=== PATIENT | female | born 1985 | race Caucasian/White ===

== ENCOUNTER 2023-11-21 19:30 | Emergency (ER) | payer OTHER ==
--- NOTE | 2023-11-21 19:57 | ED Physician Documentation ---
PD HPI BACK PAIN - Stated complaint Stated Complaint: BACK SPASMS - Chief complaint Chief Complaint: Back Pain - History obtained from History obtained from: Patient - Additional information Additional information: She was running across the street today and developed sudden severe low back pain. It spasmodic in nature, worse with position changes and bending. It is in the right low back and radiates a bit into the right leg. No numbness or tingling, no saddle anesthesia, no fevers, no IVDU, no possibility of . She tried Tylenol and ibuprofen without relief. PD PAST MEDICAL HISTORY - Past Medical History Past Medical History: No - Past Surgical History Past Surgical History: Yes /SNUFF DRIER: section HEENT: Tonsil/Adenoidectomy - Present Medications Home Medications: Ambulatory Orders Medication Instructions Recorded Confirmed Cholecalciferol (Vitamin D3) 1 cap PO DAILY 11/21/23 11/21/23 [Vitamin D3] Cyanocobalamin (Vitamin B-12) 1 tab PO DAILY 11/21/23 11/21/23 [Vitamin B12] Cyclobenzaprine [Flexeril] 10 mg PO TID PRN #14 tablet 11/21/23 HYDROcod/ACETAM 5/325 [[place] 5/325] 1 - 2 tab PO Q6H PRN #14 tablet 11/21/23 Magnesium 1 tab PO DAILY 11/21/23 11/21/23 Psyllium Husk [Fiber] 1 cap PO DAILY 11/21/23 11/21/23 - Allergies Allergies/Adverse Reactions: Allergies Allergy/AdvReac Type Severity Reaction Status Date / Time oxycodone AdvReac Itching Verified 11/21/23 19:39 - Social History Does the pt smoke?: No Smoking Status: Never smoker Does the pt drink ETOH?: No Does the pt have substance abuse?: No Substance Use and Type: Marijuana PD ED PE NORMAL - Vitals Vital signs reviewed: Yes - General General: Alert and oriented X 3, Other (Generally comfortable and pursue preferring to stand, occasionally she will move a little bit and then clutch her back.) - Back Back: No spinal TTP, Other (Tender to the right paralumbar musculature and above the sciatic notch) - Extremities Extremities: Other (The patient has equal and normal Achilles and patellar reflexes bilaterally. Normal sensation in all areas of the legs. Patient denies saddle anesthesia. Normal strength in flexion-extension at the ankles, knees, and flexion of the hips.) - Neuro Neuro: Alert and oriented X 3, Normal speech - Psych Psych: Normal mood, Normal affect Results - Vitals Vitals: Vital Signs - 24 hr 11/21/23 19:33 Temperature 36.7 C Heart Rate 64 Respiratory 15 Rate Blood Pressure 117/76 O2 Saturation 100 Oxygen O2 Source Room air Procedures - General procedure General procedure: Trigger point injection was done in the right low back in the area of palpable spasm with 9 mL of 0.5% Marcaine and 1 mL with 40 mg of triamcinolone. PD Medical Decision Making - ED course ED course: This patient has seemingly uncomplicated musculoskeletal back pain. The patient has no "red flags." Specifically denies IV drug use, fevers, incontinence, saddle anesthesia. Spinal epidural abscess was considered, given that the patient has no fever, is not diabetic, has no spinal tenderness, does not use IV drugs, and has no bilateral neurologic symptoms, the diagnosis of spinal epidural abscess is considered exceedingly unlikely. In the emergency department she was treated with 1 mg of IM Dilaudid, 60 mg of IM ketorolac and a trigger point injection with Marcaine and triamcinolone. After which she did have vagal reaction without full syncope and no injury. Subsequently she did get good pain relief. Departure - Departure Disposition: 01 Home, Self Care Clinical Impression: Back spasm Condition: Good Record reviewed to determine appropriate education?: Yes Instructions: ED Spasm Back No Trauma Prescriptions: Cyclobenzaprine [Flexeril] 10 mg PO TID PRN #14 tablet PRN Reason: Spasms HYDROcod/ACETAM 5/325 [[place] 5/325] 1 - 2 tab PO Q6H PRN #14 tablet PRN Reason: Pain Comments: I sent your prescriptions electronically to the [facility] in [place]. In addition to the prescription pain medication and muscle relaxer you can also take ibuprofen for package instructions. Heat and gentle stretching would be good. Return for new or worsening symptoms. Follow-up with your doctor after the weekend for recheck especially if not better. I am prescribing a short course of narcotic pain medication for you. These are potentially dangerous and addictive medications that should be used carefully. These medications may constipate you. Take an upib-ltm-hmnzaol stool softener (docusate) twice daily with plenty of water while taking these medications. If you go 24 hours without a bowel movement, take qlge-rez-vdsmbey miralax, per package instructions. Do not drink or drive while taking these medications. If you received narcotic or sedating medications while in the emergency department, do not drive for 24 hours. Store this medication in a safe, secure place and out of reach of children. It is a violation of federal law to give or sell this medication to another person or to use in a manner other than prescribed. The ED will not refill narcotic prescriptions, including prescriptions lost or stolen. To dispose of unwanted medications: 1. [facility] a [facility] box for medication in pill form only (no liquids) 8:00 am to 4:30 p.m. Monday-Monday in the lobby of the [facility], [address] [place] [address]. Empty pills into ziplock bag before disposal. Call [phone] for information. [email or web address] is a free service available to all [facility] residents. Go to [email or web address] Note that many narcotic pain relievers also contain Tylenol/acetaminophen. Please ensure that your total dose of acetaminophen from all sources does not exceed 3 g (3000 mg) per day.
[2023-11-21] MEDS: TRIAMCINOLONE 40 MG/ML VIAL IM STA (20:07)
[2023-11-21] MEDS: BUPIVACAINE 0.5% PF 10 ML VIAL SUBQ STA (20:07)
[2023-11-21] MEDS: KETOROLAC 60 MG/2 ML VIAL IM STA (20:08)
[2023-11-21] MEDS: HYDROmorphone 1 MG/ML CARPUJECT IM STA (20:09)
[2023-11-21] MEDS: CYCLOBENZAPRINE 10 MG Prepack 2 PO STA (20:47)
[2023-11-21] MEDS: HYDROcod/ACET 5/325 Prepack 4 PO STA (20:47)
[2023-11-21 20:56] VITALS: BP 110/82; O2SAT 98
== END 2023-11-21 21:02 | disposition home or self-care (01) ==
LOC: ED 19:30
DX: M62.830 Muscle spasm of back (principal)
CPT/HCPCS: 20552; 96372; 99283; J1170

== ENCOUNTER 2024-03-19 08:57 | Outpatient (CLI) | payer OTHER ==
--- NOTE | 2024-03-20 08:56 | Mammography Report ---
BILATERAL DIGITAL SCREENING MAMMOGRAM 3D/2D WITH AUGMENTATION: 03/19/2024 CLINICAL: Baseline exam. Routine screening. Comparison is made to exam dated: 06/02/2014 mammogram - [facility] Al[facility]. Both breasts are heterogeneously dense, which may obscure small masses (category c / 51-75% glandular tissue). Bilateral breast implants are intact. No significant masses, calcifications, or other findings are seen in either breast. There has been no significant interval change. IMPRESSION: BENIGN There is no mammographic evidence of malignancy. A 1 year screening mammogram is recommended. Based on the Tyrer Cuzick model (a risk assessment model) the patient's lifetime risk is 13.3% and he r 10 year risk is 1.7%. According to the ACR, ACS, and NCCN guidelines, an annual breast MRI exam fiordaliza ng with mammogram is recommended if the patient's lifetime risk is 20% or greater. This exam was interpreted at Station ID: [id number]. NOTE: For mammograms, a report in lay terms will be sent to the patient. Approximately 15% of breast malignancies will not be visualized mammographically. In the management of a palpable breast mass, a negative mammogram must not discourage biopsy of a clinically suspicious lesion. Electronically Signed By: Chani White M.D., Ph.D. [email or web address]:03/19/2024 14:32:16 letter sent: No_Letter ACR BI-RADS Category 2: Benign Finding(s) 3342F PARENCHYMAL PATTERN: (D) - The breast(s) demonstrate(s) heterogeneously dense fibroglandular parenchy ma. BI-RADS CATEGORY: (2) - 2 RECOMMENDATION: (ANNUAL) - Recommend routine annual screening mammography. [id number] 1 year screening LATERALITY: (B)
== END 2024-03-19 08:58 | disposition home or self-care (01) ==
LOC: DI.N 08:57
DX: Z12.31 Encounter for screening mammogram for malignant neoplasm of breast (principal); R92.333 Mammographic heterogeneous density, bilateral breasts; Z98.82 Breast implant status